=== PATIENT | male | born 1995 | race Caucasian/White ===

== ENCOUNTER 2017-06-22 20:11 | Emergency (ER) | payer OTHER ==
[~2017-06-22] VITALS: Ht 185.4 cm; Wt 78.0 kg
[2017-06-22 20:29] VITALS: TEMP 37.1; Ht 185.4 cm; Wt 78.0 kg
--- NOTE | 2017-06-22 21:18 | EMERGENCY ROOM VISIT NOTE ---
ED Visit Note First contact with patient: 21:07 CHIEF COMPLAINT: Scalp laceration HISTORY OF PRESENT ILLNESS: This 22-year-old male patient presents emergency department ambulatory after striking the head when he was playing basketball and went up for a pump fake and another player was jumping and the other player' s chin hit the top of his head. He did not fall to the ground. There was no loss of consciousness, blurry vision, nausea, vomiting, or unusual behavior afterwards. The patient denies neck pain. The bleeding has not stopped. The patient's tetanus shot is up to date. REVIEW OF SYSTEMS: A 6 system review of systems was completed with positives and pertinent negatives listed in the HPI. ALLERGIES: None MEDICATIONS: None PMH: None SOCIAL HISTORY: The patient is a [employer] student. He lives locally PHYSICAL EXAM: Vital Signs: Reviewed Nurse's notes, vital signs stable. GENERAL : This is a 22-year-old male, in no acute distress, well-developed, well- nourished. NEURO: Patient was alert and oriented to person place and time. Sensory and motor functions grossly intact. No focal neurologic deficits. Normal sensation to light and sharp touch. EYES: PERRLA. EOMI. Fundoscopic exam without hemorrhages or papilledema. EARS: No hemotympanum. No rowan sign or mastoid tenderness. SKIN: There is a 2 cm laceration on the right parietal aspect of the scalp whose edges are gaping apart. There is minimal bleeding. The wound is clean and there are no deep structures present. NECK: Supple, cervical spine nontender to palpation. EMERGENCY DEPARTMENT COURSE: I examined the patient. The patient does not have any symptoms to suggest intracranial bleeding, skull fracture or concussion. Using sterile technique the wound was cleaned with saline. The wound was explored and there were no deep structures present. The laceration was repaired using 3 marisela with the wound edges being well approximated. The patient tolerated the procedure well. The bleeding stopped. The area was cleaned with sterile saline and dressed with bacitracin ointment and bandage. He declined any pain medication. The patient was discharged home in good condition. Current/Historical Medications No Active Prescriptions or Reported Meds Allergies Coded Allergies: No Known Allergies (Unverified , 06/22/17) Vital Signs Date Time Temp Pulse Resp B/P (MAP) Pulse Ox O2 Delivery O2 Flow Rate FiO2 06/22/17 20:29 37.1 64 18 126/72 98 Departure Information Impression Primary Impression: Laceration of scalp Dispostion Home / Self-Care Condition GOOD Prescriptions No Active Prescriptions or Reported Meds Referrals No Doctor, Assigned (PCP) Patient Instructions ED Laceration Scalp Stitch Or Stap[facility] Additional Instructions Read head injury handout and return for any symptoms. Keep wound clean and dry. Do not allow any crusting or dried blood to accumulate on marisela. If this occurs, use a 1:1 solution of hydrogen peroxide/water on a Q-tip to clean the wound. Use an antibiotic ointment for 3-4 days, then let wound dry. Staple removal in 8 days. Return sooner for any signs of infection (increasing redness, swelling, drainage). Ice and elevate for swelling and pain. Tylenol or Motrin according to package instructions for pain. Keep covered when in sun until marisela removed then SPF 50 or higher for one year. Vitamin E oil if desired two weeks after staple removal for reduction of scar. Problem Qualifiers Primary Impression: Laceration of scalp Encounter type: initial encounter Qualified Codes: S01.01XA - Laceration without foreign body of scalp, initial encounter
[2017-06-22 21:34] VITALS: BP 141/69; PULSE 80; O2SAT 98
== END 2017-06-22 21:34 | disposition home or self-care (01) ==
LOC: C.EDB 20:14 → C.EDD 21:34
DX: S01.01XA Laceration without foreign body of scalp, initial encounter (principal); W50.0XXA Accidental hit or strike by another person, initial encounter